=== PATIENT | male | born 1940 | race Caucasian/White ===

== ENCOUNTER → 2016-11-17 | Outpatient (CLI) | payer MEDICARE ==
--- NOTE | 2016-11-17 15:22 | MR ---
MR brain with and without contrast HISTORY: Stroke Multiplanar multisequence and postcontrast images obtained through the brain following 15 cc MultiHan ce IV. Correlation to prior brain MRI 07 Feb 2016, head CT 07 July 2016 Similar findings to previous exam. The corpus callosum, pituitary, cervical medullary junction, cereb ellopontine angles are stable. Extensive white matter demyelination is again noted with areas of ence phalomalacia suspected. Only minimal inflammatory change present within the mastoid air cells. No mas s effect or hemorrhage. No abnormal enhancement following contrast menstruation. The orbits show symm etric appearance. No restricted diffusion. No restricted diffusion. IMPRESSION: Essentially stable exam. 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 Cerebral atrophy. Other etiologies of white matter demyelination not excluded.
== END | disposition home or self-care (01) ==
LOC: RADMRIMAIN 13:25
PROVIDERS: ATTEND Psychiatry & Neurology Neurology
DX: G31.9 Degenerative disease of nervous system, unspecified (principal); G93.89 Other specified disorders of brain
CPT/HCPCS: 70553; A9577